=== PATIENT | female | born 1975 | race African-American/Black ===

== ENCOUNTER 2022-12-07 08:43 | Outpatient (CLI) | payer OTHER, SELFPAY ==
--- NOTE | 2022-12-07 08:57 | ECG_ITS ---
Measurements Intervals [place] Rate: 64 P: 50 MA: 169 QRS: 30 QRSD: 90 T: 39 QT: 391 QTc: 406 Interpretive Statements SINUS RHYTHM NO PREVIOUS ECG AVAILABLE FOR COMPARISON Electronically Signed On 12-07-2022 13:31:38 CDT by Leah Odonnell M.D.
== END 2022-12-07 08:44 | disposition home or self-care (01) ==
LOC: ANHSURGERY 08:49
PROVIDERS: PCP Internal Medicine; Visit Provider Urology
DX: I10 Essential (primary) hypertension (principal); Z01.818 Encounter for other preprocedural examination
CPT/HCPCS: 93005

== ENCOUNTER 2022-12-10 00:55 | Day surgery (SDC) | payer OTHER, SELFPAY ==
--- NOTE | 2022-11-25 20:05 | PM.IMHP ---
H&P: HPI History of Present Illness Date/Time: 11/25/22 20:05 Chief Complaint: urge urinary incontinence Narrative: long history of urge urinary incontinence. She failed medications and behavioral techniques. She failed Kegel exercises. She underwent a trial of sacral nerve stimulation with greater than 75% improvement. She presents for placement of her permanent device Review of Systems Review of Systems: All systems reviewed & are unremarkable except as noted in HPI and below Meds Home Medications and Allergies Allergies Allergy/AdvReac Type Severity Reaction Status Date / Time No Known Allergies Allergy Verified 03/27/14 10:21 Exam Narrative: no acute distress normal breathing alert oriented x3 Assessment and Plan Assessment and plan (1) Urge incontinence: Code(s): N39.41 - Urge incontinence Status: Acute Assessment and Plan: placement of sacral neurostimulator. Understands risks of bleeding, infection, lack of efficacy, need for revision and battery changes. She agrees to proceed
[2022-12-06 09:10] VITALS: BMI 32.1
--- NOTE | 2022-12-06 09:14 | PC.NURSE ---
Report to the Outpatient Waiting Room, entrance under the green pavilion located off [facility], at time 6:00 on date 12/10/22. Planned Procedure Time: 7:30. Time changes happen often and if your time is changed the preop area will call you the afternoon before. - You and your visitor will be asked to self-screen and do not enter if you have any COVID symptoms. - A mask is optional within the hospital at this time. Patients may have clear liquids (water, carbonated beverages, clear teas, apple juice) until 3 hours prior to surgery (4:30) with a maximum of 20 ounces. - No food from midnight until time of surgery Take the following medications with a SIP of water the morning of surgery: AMLODIPINE DO NOT STOP ANY OF YOUR OTHER PRESCRIPTION MEDICATIONS PRIOR TO SURGERY EXCEPT THE FOLLOWING Medications to discontinue per physician: VITAMINS/SUPPLEMENTS Date to take last dose: 12/02/22 (PER PATIENT) Please no make-up, nail thai, hairspray, perfume, deodorant, or body powder the day of surgery. No jewelry (including any body piercings) or valuables the day of surgery, leave them at home. Please take a shower or bath the night before, or the morning of, surgery with an antibacterial soap. Wear comfortable, loose fitting clothing. - Jewelry must be removed prior to entering the operating room. Rings and piercings that are not removed may be cut off. - The hospital will not accept responsibility for valuables. - Please leave all valuables, including medications, at home the day of surgery. If you are going home after surgery, a licensed shuttle truck driver must drive you home. - NO public transportation without another adult if you receive anesthesia. - We recommend that an adult stay with you for 24 hours following discharge. - We also recommend that you do not drive, make important decision, drink alcoholic beverages, or take any drugs that were not prescribed by your health care provider for at least 24 hours after your discharge time. Follow any additional instructions given to you from your surgeon. If you or anyone in your household have experienced Covid symptoms in the past week, please notify your surgeon or the nurse liaison at the phone number below for possible testing. Telephone instructions given to PT - YENNIFER RICO and asked if any additional questions and then verbalized understanding. Patient advised to call surgeon office or pre surgery nurse liaison [phone] if any additional questions.
--- NOTE | 2022-12-09 13:30 | P.PNAN_ITS ---
Anes - Initial Pre Proc Eval Procedure: Operation Date: 12/10/22 07:30 Proposed Procedures p Neurostimulator Implant - Tejas Zavala MD Date/Time: 12/09/22 13:30 Surgeon: Tejas Zavala MD Pre Op Diagnosis: Urinary Incont, Freq Micturition Patient Data Age: 47 Gender: F Height: 1.7 m Weight: 93 kg Allergies Allergy/AdvReac Type Severity Reaction Status Date / Time No Known Allergies Allergy Verified 12/10/22 06:02 Home Medications Medication Instructions Recorded Confirmed Type amlodipine 5 mg tablet 5 mg PO DAILY 12/06/22 12/06/22 History calcium carbonate 600 mg calcium 600 mg PO DAILY 12/06/22 12/06/22 History (1,500 mg) tablet (Calcium) multivitamin 1 tablet PO DAILY 12/06/22 12/06/22 History Patient hx anesthesia problems: none Family hx anesthesia problems: none Results Review: All pre-operative results and documents have been reviewed as part of the pre- operative evaluation. PMFSH Past Medical History Medical History (Updated 12/09/22 @ 13:30 by Laureano Knowles DO) Hypertension Surgical History Surgical History (Updated 12/09/22 @ 13:30 by Laureano Knowles DO) History of hysterectomy History of tonsillectomy Social History Social History Smoking status: Never smoker Alcohol intake: current Alcohol use details: RARE Substance use: never Substance use type: does not use Living arrangements: with family Spiritual care concerns: No Anes - Eval Final PreProcedure Day of Procedure 12/09/22 13:30 Patient weight: obese Heart: regular rate and rhythm Lungs: clear to auscultation Airway: Mallampati scale class 1 Neurological: alert and oriented Last oral intake: >/= 8 hours ASA classification: III Emergent: no Anesthetic plan: proceed Anesthesia type and monitoring: general GIVS and standard monitoring Results Review: All pre-operative results and documents have been reviewed as part of the pre- operative evaluation. Informed Consent: The patient's anesthetic plan and its attendant risks and benefits were discussed with the patient/family/POA. Questions were solicited and answers provided to the satisfaction of the patient/family/POA.
--- NOTE | ~2022-12-10 | XR_ITS ---
EXAMINATION: FLUORO NEUROSTIM INSERT < 1HR DATE: 12/10/2022 08:06 INDICATION: Interstim TECHNIQUE: 2 fluoroscopic images including frontal and lateral projections of the sacrum were obtaine d. The amount of fluoroscopy time used during this procedure was 0.6 minutes. COMPARISON: None. FINDINGS: Distal tip of an Interstim lead extends from posterior to anterior through the an S3 neura l foramen. Markers indicating the site are not included on the provided images it is unclear whether this is on the right or left. IMPRESSION: 1. Interstim lead extends through an S3 neural foramen. See procedure note for further detail. Reviewed, dictated and finalized at location A.
[2022-12-10 06:08] VITALS: BP 116/83; PULSE 53; RESP 16; TEMP 36.5; O2SAT 100
[2022-12-10] MEDS: LACTATED RINGERS 1,000 ML 30 ML IV CONT (06:46)
--- NOTE | 2022-12-10 07:18 | WPDHPUPDATE1 ---
History and Physical Update Update Date/Time: 12/10/22 07:18 History and Physical has been reviewed, including an updated exam of the patient. There are NO changes in the patient's condition. Risks, benefits, and alternatives have been discussed and questions answered. Patient agrees to proceed with procedure.
[2022-12-10] MEDS: ceFAZolin 2 GM/D5W 50 ML 2 GM/50 ML BAG IVPB (07:30)
[2022-12-10] MEDS: ceFAZolin SODIUM 1 GM VIAL IRRIGATION (07:51)
[2022-12-10 08:13] VITALS: BP 120/44; PULSE 81; RESP 14; O2SAT 100
--- NOTE | 2022-12-10 08:23 | W.PM.PROC2 ---
Procedure Note - Detailed Date of Procedure 12/10/22 Pre-op Diagnosis Urinary Incont, Freq Micturition Post-op Diagnosis Same Procedure Performed Implantation of sacral lead 79122 Fluoroscopic guidance for needle placement 16385-34 Placement of implantable pulse generator 88961 Complex neurostimulator programming impedance check 55326 Surgeon Tejas Zavala MD Anesthesia MAC and Local Indications This is a patient with refractory urge urinary incontinence. They have undergone a successful trial of sacral nerve stimulation. They present today for permanent implantation. They understand the risks of bleeding, infection, decreased efficacy, need for revision and battery changes. They agree to proceed Findings See dictated Description of Procedure They were correctly identified and informed consent was obtained. There brought to the operating room. There placed in the prone position. There given appropriate perioperative antibiotics. A time-out performed. I used fluoroscopy to robert out my sacral landmarks in the AP and the lateral orientation. I anesthetized the skin. I entered the S3 foramen. I monitored the needle with fluoroscopy. I got appropriate Fredy and toe response at a low threshold. I made a skin althea. I placed a stylet. I placed the lead introducer sheath. I thinned placed and deployed to my lead. I got appropriate responses again at a low threshold. I marked out the site of the pulse generator. I anesthetized the skin and made that incision. I created a subcutaneous pocket to house the pulse generator. I tunneled the lead towards this pocket. Appropriate connections were made between the lead and the battery. It was placed in the pocket. It was programmed and impedances were checked and found to be normal. I irrigated out all wounds. I ensured hemostasis. I closed the subcutaneous tissues with 2 Vicryl. I closed the skin with 4 0 Vicryl. Glue was applied. There then awakened and transferred to the PACU in stable condition. Implants Sacral neurostimulator Estimated Blood Loss -5.0 Drains No Packing No Pathology None sent Condition Stable Disposition PACU
[2022-12-10 08:40] VITALS: BP 117/63; PULSE 62; RESP 14; O2SAT 99
[2022-12-10] MEDS: oxyCODONE HCL (*CRX) 5 MG TAB IR PO (08:45)
[2022-12-10 09:10] VITALS: BP 113/54; PULSE 48; RESP 14
== END 2022-12-10 09:32 | disposition home or self-care (01) ==
PROVIDERS: PCP Internal Medicine; Visit Provider Urology
PROC: (CPT 64561; principal; 2022-12-10 07:30)
DX: N39.41 Urge incontinence (principal); R35.0 Frequency of micturition; I10 Essential (primary) hypertension; E66.9 Obesity, unspecified; Z68.32 Body mass index [BMI] 32.0-32.9, adult
CPT/HCPCS: 64561; 64590; 93005; 99199; A9270; C1767; C1778; C1787; J0690; J2250; J2405; J2704; J3010; J7120